=== PATIENT | male | born 1975 | race Hispanic/Latino ===

== ENCOUNTER 2020-12-02 18:03 | Observation (INO) | payer BC ==
[~2020-12-02 18:03] MED LIST: Iopamidol-370 76% 500 ML 1 ML ONE
[2020-12-02] MEDS ORDERED: Albuterol 200 PUFF (6.7GM INHALER) ONE (19:24)
[2020-12-02 19:35] LABS: #Basophils 0.1 thou/uL (0.0-0.2); #Eosinphils 0.2 thou/uL (0.0-0.7); #Lymphocytes 2.7 thou/uL (1.20-3.40); #Monocytes 0.5 thou/uL (0.11-0.59); #Neutrophils 4.7 thou/uL (1.40-6.50); %Basophils 1.2 % (0.0-1.0); %Eosinophils 2.6 % (0.0-10.0); %Lymphocytes 32.8 % (21.0-51.0); %Neutrophils 57.4 % (42.0-75.0); Hemoglobin 15.6 g/dL (14.0-18.0); Mean Corpuscular HGB CONC 36.3 g/dL (32.0-36.0); Mean Corpuscular Hemoglobin 33.1 pg (27.0-31.0); Mean Corpuscular Volume 91.1 fL (78.0-98.0); Mean Platelet Volume 7.3 fL (7.4-10.4); Platelet Count 198 thou/uL (130-400); Red Blood Cell (RBC) Count 4.73 mill/uL (4.70-6.10); White Blood Cell (WBC) Count 8.1 thou/uL (4.8-10.8)
[2020-12-02 19:40] LABS: ALT (SGPT) 58 U/L (8-55); AST (SGOT) 38 U/L (5-34); Albumin 3.9 g/dL (3.5-5.0); Alkaline Phosphatase 121 U/L (40-110); Anion Gap 21 mmol/L (10-20); BUN (Urea Nitrogen) 19 mg/dL (8.9-20.6); Bilirubin, Total 0.5 mg/dL (0.2-1.2); Calc. Creatinine Clearance 0 mL/min (70-130); Calcium 9.3 mg/dL (7.8-10.44); Carbon Dioxide 17 mmol/L (22-29); Chloride 102 mmol/L (98-107); Globulin 4.3 g/dL (2.4-3.5); Glucose 321 mg/dL (70-105); Potassium 4.1 mmol/L (3.5-5.1); Protein, Total 8.2 g/dL (6.0-8.3); Sodium 136 mmol/L (136-145)
[2020-12-02] MEDS ORDERED: HYDROcodone/Acetaminophen 5/325 mg Tablet PO PRN (21:52)
[2020-12-02] MEDS ORDERED: Senokot S 8.6-50 MG TAB PO PRN (21:52)
[2020-12-02] MEDS ORDERED: HYDROcodone/Acetaminophen 7.5/325 mg Tablet PO PRN (21:52)
[2020-12-02] MEDS ORDERED: Ondansetron PF 4 MG/2 ML Vial IVP PRN (21:52)
[2020-12-02] MEDS ORDERED: Guaifenesin DM 100-10/5 ML UDCUP PO PRN (21:52)
[2020-12-02] MEDS ORDERED: Acetaminophen 325 MG TAB PO PRN (21:52)
[2020-12-02] MEDS ORDERED: Dextrose 5% in Water 1,000 ML IV PRN (21:57)
[2020-12-02] MEDS ORDERED: Dextrose 50% Abboject 50 ML SYRINGE SLOW IVP PRN (21:57)
[2020-12-02] MEDS ORDERED: HumaLOG 300 UNITS/3 ML VIAL SC PRN (21:57)
[2020-12-02 22:25] LABS: Actual Bicarbonate (HCO3v) 22 mEq/L (22-28); Analyzer IN Cardio ER; Base Excess -1.7 mEq/L (-2.0 to +3.0); Calcium, Ionized (venous) 1.12 mmol/L (1.16-1.32); Chloride (VBG) 102 mmol/L (98-106); Hemoglobin (Hb) 15.3 g/dL (13.1-17.2); Potassium (VBG) 4.05 mmol/L (3.70-5.30); Sodium 134.5 mmol/L (133-146); pH (venous) 7.44 (7.32-7.43)
[2020-12-02] MEDS ORDERED: Albuterol Sulfate 1.25 MG/3 ML NEB INH PRN (22:30)
[2020-12-03] MEDS ORDERED: Enoxaparin Sodium 40 MG/0.4 ML SYRINGE SC SCH ×2 (00:30→09:00)
[2020-12-03] MEDS ORDERED: Zinc Sulfate 220 MG CAP PO SCH ×2 (00:45→09:00)
[2020-12-03] MEDS ORDERED: Dexamethasone 10 MG/ML VIAL SLOW IVP SCH ×2 (00:45→09:00)
[2020-12-03] MEDS ORDERED: Cholecalciferol (Vitamin D3) 400 UNITS TAB PO SCH ×2 (01:00→09:00)
[2020-12-03] MEDS ORDERED: Ascorbic Acid 500 mg Chewable Tablet PO SCH ×2 (01:00→09:00)
[2020-12-03 01:31] VITALS: TEMP 97.6
[2020-12-03 01:33] VITALS: BMI 27.8
[2020-12-03] MEDS ORDERED: FLU VACC QS2021-22(6MOS UP)/PF 60 MCG/0.5 ML SYRINGE IM ONE (01:45)
[2020-12-03 05:49] LABS: #Eosinphils 0.1 thou/uL (0.0-0.7); #Lymphocytes 1.5 thou/uL (1.20-3.40); #Monocytes 0.2 thou/uL (0.11-0.59); #Neutrophils 6.9 thou/uL (1.40-6.50); %Basophils 0.1 % (0.0-1.0); %Eosinophils 1.1 % (0.0-10.0); %Lymphocytes 17.2 % (21.0-51.0); %Monocytes 1.8 % (0.0-10.0); %Neutrophils 79.8 % (42.0-75.0); Hemoglobin 14.6 g/dL (14.0-18.0); Mean Corpuscular HGB CONC 34.5 g/dL (32.0-36.0); Mean Corpuscular Hemoglobin 31.8 pg (27.0-31.0); Mean Corpuscular Volume 92.1 fL (78.0-98.0); Mean Platelet Volume 7.6 fL (7.4-10.4); Platelet Count 165 thou/uL (130-400); RBC Distribution Width 13.2 % (11.5-14.5); White Blood Cell (WBC) Count 8.6 thou/uL (4.8-10.8)
[2020-12-03] MEDS: HumaLOG 300 UNITS/3 ML VIAL SC PRN ×2 (06:07→12:33)
[2020-12-03 06:18] LABS: Anion Gap 16 mmol/L (10-20); BUN (Urea Nitrogen) 20 mg/dL (8.9-20.6); Calc. Creatinine Clearance 128 mL/min (70-130); Calcium 9.2 mg/dL (7.8-10.44); Carbon Dioxide 22 mmol/L (22-29); Cardiac Risk 7.7 (Less than 4.5); Chloride 102 mmol/L (98-107); Cholesterol 292 mg/dl (< 200 Desired); Glucose 308 mg/dL (70-105); HDL Cholesterol 38 mg/dL (>60 Neg Risk); Potassium 4.5 mmol/L (3.5-5.1); Sodium 135 mmol/L (136-145); Triglycerides 757 mg/dL (Less than 150)
[2020-12-03 06:37] LABS: Hemoglobin A1c 9.6 % (4.0-6.0)
[2020-12-03 08:14] VITALS: BP 106/71
[2020-12-03] MEDS ORDERED: Famotidine/PF 20 mg/2ml Vial SLOW IVP SCH (09:00)
== END 2020-12-03 14:30 | disposition home or self-care (01) ==
LOC: ERS 18:03 → 2SW 21:12
PROVIDERS: ADMIT Student in an Organized Health Care Education/Training Program; ATTEND Internal Medicine
DX: U07.1 COVID-19 (principal); J12.82 Pneumonia due to coronavirus disease 2019; E78.5 Hyperlipidemia, unspecified; E87.1 Hypo-osmolality and hyponatremia; E11.65 Type 2 diabetes mellitus with hyperglycemia; I10 Essential (primary) hypertension; R74.8 Abnormal levels of other serum enzymes; Z91.14 Patient's other noncompliance with medication regimen; Z79.84 Long term (current) use of oral hypoglycemic drugs; Z79.899 Other long term (current) drug therapy
CPT/HCPCS: 36415; 36416; 71045; 71275; 80048; 80053; 80061; 82805; 83036; 84484; 85025; 85379; 93005; 94664; 96372; 96374; 96375; 96376; G0378; J1100; J1650; J1815; Q9967; S0028